=== PATIENT | male | born 2000 | race African-American/Black ===

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

== ENCOUNTER 2022-11-09 21:47 | Emergency (ER) | payer OTHER ==
[2022-11-09 22:03] VITALS: RESP 18; TEMP 97.9; BMI 28.6
[2022-11-09] MEDS ORDERED: SODIUM CHLORIDE 1,000 ML IV ONE (22:26)
[2022-11-09 22:57] LABS: HEMATOCRIT 41.3 % (35.4-49); HEMOGLOBIN 14.6 G/dL (11.7-16.9); MCHC 35.2 g/dl (32.0-35.9); MEAN CELL VOLUME 99.3 fl (80-96); MEAN PLT VOLUME 8.5 fl (7.5-11.1); RBC 4.16 10^6/uL (4.00-5.60); RDW 12.3 % (11.9-15.9); WHITE BLOOD COUNT 10.7 10^3/uL (4.0-10.8)
[2022-11-09 23:13] LABS: PLATELET ESTIMATE ADEQUATE
[2022-11-09 23:17] LABS: ALBUMIN 4.2 g/dl (3.4-5.0); BILIRUBIN,TOTAL 0.8 mg/dl (0.2-1); CALCIUM 9.4 mg/dl (8.5-10); TOT PROT 6.8 g/dl (6.4-8.2)
[2022-11-10 00:03] VITALS: BP 116/78; PULSE 61
== END 2022-11-10 00:03 | disposition home or self-care (01) ==
LOC: FER 21:47
PROC: 3E0337Z Introduction of Electrolytic and Water Balance Substance into Peripheral Vein, Percutaneous Approach (ICD-10-PCS; principal; 2022-11-09)
DX: R55 Syncope and collapse (principal)
CPT/HCPCS: 36415; 71046-TC-FY; 80053; 85027; 93005; 99285-25

== ENCOUNTER 2025-02-07 01:06 | Emergency (ER) | payer OTHER ==
[2025-02-07 01:37] VITALS: BP 124/70; PULSE 84; RESP 17; TEMP 97.8; BMI 28.1
[2025-02-07] MEDS ORDERED: ACETAMINOPHEN 325 MG TABLET (FP) ONE (01:42)
[2025-02-07] MEDS: ACETAMINOPHEN 500 MG TABLET (FP) PO ONE (01:45)
== END 2025-02-07 02:05 | disposition home or self-care (01) ==
LOC: JER 01:06
DX: M25.512 Pain in left shoulder (principal); V87.7XXA Person injured in collision between other specified motor vehicles (traffic), initial encounter
CPT/HCPCS: 73030-TC-LT-FY; 99283-25